=== PATIENT | female | born 1950 | race Caucasian/White ===

== ENCOUNTER 2019-06-03 07:59 | Outpatient (CLI) | payer MEDICARE, OTHER, SELFPAY ==
--- NOTE | 2019-06-03 08:15 | MM_ITS ---
WS: [id number] Unilateral RIGHT diagnostic DIGITAL MAMMOGRAM WITH CAD HISTORY: 6 MO F/U RT ASYMMETRY COMPARISON: 02/10/2019, 01/22/2019, 05/23/2016, 01/12/2015 RIGHT CC, MLO, ML and spot views. Computer aided detection analyzed. Breast composition: There are scattered areas of fibroglandular density. Asymmetry measuring 8 mm per sists along the 10:00 axis of the RIGHT breast at a middle depth. Very similar in appearance to the p rior study. These findings remain stable since 01/12/2015. This distortion is concerning but due to st ability continued follow-up is recommended. RIGHT breast ultrasound, limited. Ultrasound is directed to the upper-outer quadrant of the RIGHT breast. No ultrasound abnormality is identified. There is no shadowing or distortion. MM/[place] [id number] IMPRESSION: BI-RADS: 3-Probably Benign FOLLOW UP: 9 Month Follow-up Recommend diagnostic mammogram follow-up and possible ultrasound in 9 months. T his will be the time for the patient's annual mammogram. Recommend follow-up ma mmogram in January 2020. Diagnostic imaging of the RIGHT breast and possible ul trasound.
== END 2019-06-03 08:00 | disposition home or self-care (01) ==
LOC: RADSHAW 08:04
PROVIDERS: Family Provider Internal Medicine; PCP Internal Medicine; Visit Provider Internal Medicine
DX: N64.89 Other specified disorders of breast (principal)
CPT/HCPCS: 76642; 77065

== ENCOUNTER 2020-03-16 07:44 | Outpatient (CLI) | payer MEDICARE, OTHER, SELFPAY ==
--- NOTE | 2020-03-16 08:14 | MM_ITS ---
WS: [id number] BILATERAL DIGITAL DIAGNOSTIC MAMMOGRAM MAMMOGRAPHY WITH CAD CLINICAL INFORMATION: INCONCLUSIVE MAMMOGRAM/RT ASYMMETRY COMPARISON: 019 prior mammograms dating back to 2014 TECHNIQUE: Bilateral CC, MLO, and ML views. FINDINGS: Scattered fibroglandular densities bilaterally. Stable 8 mm ovoid density upper outer right breast. T his is stable since 2015. A few punctate calcifications. Left breast is unchanged in appearance. Ultr asound right breast is pending. ULTRASOUND BREAST RIGHT TECHNIQUE: Ultrasound right breast focused area of concern. CLINICAL INFORMATION: INCONCLUSIVE MAMMOGRAM/RT ASYMMETRY COMPARISON: None. FINDINGS: Ultrasound right breast at the 9 to 11:00 position. No evidence of pathologic mass or lesion to corre spond to the mammographic findings. Dense underlying parenchymal tissue. No suspicious findings. Dc mmend return to annual screening mammography. MM/[place] [id number] IMPRESSION: BI-RADS: 2-Benign FOLLOW UP: 1 Year Follow-up Recommend return to annual screening mammography.
== END 2020-03-16 07:45 | disposition home or self-care (01) ==
LOC: RADSHAW 07:47
PROVIDERS: Family Provider Internal Medicine; PCP Internal Medicine; Visit Provider Internal Medicine
DX: R92.2 Inconclusive mammogram (principal); N64.89 Other specified disorders of breast
CPT/HCPCS: 76642; 77066

== ENCOUNTER 2021-10-18 08:41 | Outpatient (CLI) | payer MEDICARE, OTHER, SELFPAY ==
--- NOTE | 2021-10-18 08:59 | MR_ITS ---
WS: [id number] INDICATION: RIGHT wrist pain with knot RIGHT wrist. Palpable lump TECHNIQUE: MRI of the RIGHT forearm without and with gadolinium enhancement. Sagittal T1, STIR, coron al T1, coronal T2 fat-sat, axial T1, axial T2 fat sat, and post gadolinium images were obtained with fat saturation technique. Images are somewhat limited due to difficult positioning and location of th e lesion. FINDINGS: Palpable marker visualized overlying the dorsal distal radius just proximal to the radiocar pal joint. Underlying inflammatory changes and edema with fluid extending along the underlying tendon sheath compatible with tenosynovitis with diffuse adenopathy. Palpable marker overlies the extensor pollicis brevis tendon and abductor pollicis longus with diffuse thickening and enhancement. Loss of the normal tendon signal. Findings compatible with diffuse tendinopathy and tenosynovitis with partia l tear. Recommend clinical correlation for injury. Loss of the normal T1 signal involving the extenso r pollicis brevis and abductor pollicis longus. Small amount of edema extends along the extensor retinaculum. Adjacent extensor carpi radialis brevis and extensor carpi radialis longus are normal in appearance. MR/MR forearm RT wo/w con [id number] IMPRESSION: 1. The to the palpable marker there is diffuse irregularity with fluid and isabelle ma involving the extensor pollicis brevis and abductor pollicis longus tendons consistent with tendinopathy and partial tear. Loss of the normal tendon signal . Prominent diffuse surrounding soft tissue thickening. Diffuse enhancement lik jacqueline inflammatory. 2. Small amount of edema along the extensor retinaculum. Extensor carpal radia lis longus and extension carpi radialis brevis are normal in appearance.
[2021-10-18] MEDS: gadobenate dimeglumine 20 mL vial IV (10:45)
== END 2021-10-18 08:42 | disposition home or self-care (01) ==
PROVIDERS: PCP Internal Medicine; Visit Provider Orthopaedic Surgery
DX: M79.89 Other specified soft tissue disorders (principal)
CPT/HCPCS: 73220

== ENCOUNTER → 2022-03-13 07:56 | Outpatient (BNVA) | payer MEDICARE, OTHER, SELFPAY | PROVIDERS: PCP Internal Medicine; Visit Provider Student in an Organized Health Care Education/Training Program | DX: M65.4 Radial styloid tenosynovitis [de Quervain] (principal) | CPT/HCPCS: 99204 ==

== ENCOUNTER 2022-03-16 06:49 | Day surgery (SDC) | payer MEDICARE, OTHER, SELFPAY ==
[2022-03-16] VITALS (15 sets, daily range): BP systolic 141–228; BP diastolic 77–105; PULSE 57–75; RESP 14–18; TEMP 36.1–36.3; O2SAT 94–99
[2022-03-16] MEDS: acetaminophen 1,000 MG/100 ML PIGGYBACK 400 MG IV (07:22)
[2022-03-16] MEDS: ketorolac 30 mg/mL INJ IVP (07:22)
[2022-03-16] MEDS: sodium chloride 0.9% 1,000 ML 30 ML IV (07:22)
[2022-03-16 07:23] LABS: Glucose Point of Care 95 mg/dL (70-110)
--- NOTE | 2022-03-16 07:45 | ANES.PREANE2 ---
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 Operation Date: 03/16/22 08:25 Proposed Procedures p Right wrist first dorsal compartment release 45656,M65.4(Right) - Niles Archuleta, DO Familial anesthetic complications: none Was Beta Beto taken within 24 hours: N/A Was Clonidine taken within 24 hours: N/A Last intake: Intake Last Liquid Date 03/15/22 Last Liquid Time 20:30 Last Solid Date 03/15/22 Last Solid Time 15:30 Social Tobacco (vapes) and No alcohol Exam alert, oriented x 3 and regular rate & rhythm Airway Submandibular: within normal limits Cervical ROM: within normal limits Mallampati: Class II Dentition: full Pulmonary Chronic Obstructive Pulmonary Disease CV/HEM Hypertension Metabolic Diabetes Mellitus and Thyroid Disease Neuropsych Anxiety Anesthetic Plan ASA status: 3 Anesthesia: Choice Medications/Allergies Home Medications Medication Instructions Recorded Confirmed Last Taken Type alprazolam 1 mg tablet 1 mg PO BID 03/13/22 03/15/22 03/16/22 History blood sugar diagnostic (Blood 03/13/22 03/13/22 Unknown History Glucose Test strips) hydrocodone 5 mg-acetaminophen 325 1 tab PO BID PRN Pain 03/13/22 03/15/22 03/16/22 History mg tablet levothyroxine 88 mcg tablet 88 mcg PO DAILY 03/13/22 03/15/22 03/15/22 History (Levoxyl) lisinopril 40 mg tablet 40 mg PO DAILY 03/13/22 03/15/22 03/15/22 History metformin 500 mg tablet 500 mg PO BID 03/13/22 03/15/22 03/15/22 History Allergies Allergy/AdvReac Type Severity Reaction Status Date / Time No Known Allergies Allergy Verified 03/13/22 08:18 Current Medications Generic Name Dose Route Start Last Admin Trade Name Freq PRN Reason Stop Dose Admin Sodium Chloride 1,000 mls @ 30 mls/hr 03/16/22 07:00 03/16/22 07:22 Sodium Chloride 0.9% IV 03/17/22 06:59 30 mls/hr .Q24H JUVENTINO Administration Data Anesthesia Cardiac Studies: No Data to Display
[2022-03-16] MEDS: ceFAZolin 2,000 MG in sodium chloride 0.9% (plus) 50 ML 100 MG IV (08:38)
--- NOTE | 2022-03-16 08:48 | W.PM.OPSUD ---
Surgery/Procedure H&P Update DATE OF PROCEDURE: March 16, 2022 DATE H&P PERFORMED: 03/13/22 CHANGES TO PREVIOUS DOCUMENTATION: None PREOP DIAGNOSIS: Right wrist de Quervain's disease PRIMARY INDICATION FOR PROCEDURE: Right wrist de Quervain's disease PLANNED PROCEDURE: Operation Date: 03/16/22 08:25 Proposed Procedures p Right wrist first dorsal compartment release [id number],M65.4(Right) - Niles Shannon DO
[2022-03-16] MEDS: lidocaine 1% INJ 20 mL INJECTION (09:05)
[2022-03-16] MEDS: metoprolol tartrate 1 mg/1 mL SDV 5 mL 5 MG IVP (10:00)
--- NOTE | 2022-03-16 11:01 | P.OP_ITS ---
Operative Report Date of procedure: March 16, 2022 Pre-op diagnosis: Preop Diagnosis Right wrist de Quervain's disease Post-op diagnosis: Same Procedure done: Right wrist de Quervain's release (right wrist first dorsal compartment release) Surgeon: Niles Shannon DO Estimated blood loss: 4 mL 21 minutes IV fluids: See anesthesia record Complications: None Findings: See operative report narrative Condition: stable Disposition: same day Brief History: Patient seen and been worked up in the outpatient setting. She had been worked up by an additional physician and to see myself as a second opinion. She is failed conservative treatment exhaustively is over the past year she is underwent injection with minimal relief she has been braced as well as underwent casting. This point time she is failed conservative treatment we talked about her treatment options as far as continuing conservative or surgical intervention. This point time through shared decision-making she is agreeable to proceed with surgical intervention of right wrist de Quervain's release (she understands risk benefits complication alternatives to surgical treatment options. Understanding wrist she agrees to proceed with surgical intervention. All questions answered. Consent was obtained in the office. Procedure: Patient was seen evaluate in the preoperative holding area. Consent was reviewed and signed with patient. The correct extremity was marked. Seen evaluate Anesthesia Department was cleared for surgery taken back to the operative suite. She is placed onto the OR table. All bony prominences well- padded patient was properly secured to the bed. Armboard was placed for the right upper extremity. She had a nonsterile tourniquet applied to the right upper arm. Patient subsequently underwent anesthesia per the anesthesia department. Right upper extremity was then prepped and draped in therapeutic fashion. Final timeout performed. She received appropriate preoperative antibiotics. Esmarch tourniquet was used exsanguinate the right upper extremity and t ourniquet was insufflated to 250 mmHg. A standard longitudinal incision was made centered over the right wrist first dorsal compartment. Sharp scalpel incision was made through skin. I then switched to dissection scissors and spread longitudinally. The superficial radial nerve branch was identified and protected throughout the case. I then spread the subcutaneous tissue directly over to the second first dorsal compartment fascia. This point time I switched to deep scalpel and made an incision over the first dorsal compartment longitudinally. I then switched to dissection scissors and a turned my attention proximally. I bluntly spread on top of the first dorsal compartment and then care under loupe magnification and protection and visualization completely released the first dorsal compartment proximally. Next I switched my Kasdan retractors distally and under direct visualization with loupe magnification I incised the first dorsal compartment distally to its distalmost extent. This had free mobilization of the tendons. I then identified all the slips of the tendon. There is mild irritation but no significant tearing was noted. Next IN identified the EPB tendon which was entrapped within its own soft sheath. The soft sheath was then released to its entirety with dissection scissors. The first dorsal compartment tendons were once again thoroughly inspected no masses were noted no significant tearing of the tendons was noted. There was some tenosynovitis around the tendons which some of the excessive synovitis was then excised around the tendons. The wound bed was then thoroughly irrigated. The tendons were confirmed to be free as I move the wrist as well as thumb through range of motion of the tendons glided free. This point time tourniquet was deflated. Hemostasis satisfactory with bipolar electrocautery. Wound bed once again thoroughly irrigated. Incision was then closed with 3-0 Vicryl and a running horizontal mattress nylon stitch. Incision covered with Xeroform 4 x 4's ABD soft roll and an Jaime wrap. She was awakened from anesthesia and taken to PACU in stable condition. Patient tolerated procedure without complications. Disposition: Patient taken to PACU in stable condition tolerated procedure without complications. She will receive appropriate discharge instructions as well as pain medication postoperatively. Follow-up with me in the office in 2 weeks. Patient understands agrees with current plan. All questions answered.
--- NOTE | 2022-03-16 11:01 | P.OP_ITS ---
Brief Operative Note Date of procedure: 03/20/22 Pre-op diagnosis: Right de Quervain's disease Post-op diagnosis: same Procedure Done: Right de Quervain's release (release first dorsal compartment right wrist) Surgeon: Niles Shannon Estimated blood loss (mL): 4 Complications: None Post-op Plan: Patient taken to PACU in stable condition recovering well. Patient will receive appropriate discharge instructions as well as pain medication postoperatively. She will follow-up with me in the office in 2 weeks. Patient understands agrees with current plan. All questions answered. Condition: stable Disposition: same day Coding Level of Care Code Acute Research Agricultural Engineer for Josseline Machado
--- NOTE | 2022-03-16 11:01 | PM.PACU ---
PACU note Narrative: Patient taken to PACU in stable condition. Patient pain well controlled and tolerated procedure. Dressings on in place clean dry and intact. Patient is able to wiggle fingers as well as extend thumb. Patient does have some decreased sensation to the thumb secondary to local anesthesia. Fingertips warm well-perfused brisk capillary refill less than 2 seconds. Exam: awake Disposition: discharged
--- NOTE | 2022-03-16 15:42 | ANE.PACU2 ---
Inpatient post-anesthesia follow up: Airway intact: Yes Vital signs: Temperature 97.2 F Pulse Rate 58 Respiratory Rate 18 Blood Pressure 169/88 Pulse Oximetry 97 Oxygen Delivery Me thod Room Air Oxygen Flow Rate Fraction of Inspir ed Oxygen Hydration adequate: Yes Nausea and vomiting: No Pain level: 2 Mental status: Baseline
== END 2022-03-16 11:02 | disposition home or self-care (01) ==
PROVIDERS: PCP Internal Medicine; Visit Provider Student in an Organized Health Care Education/Training Program
PROC: (CPT 25000; principal; 2022-03-16 08:15)
DX: M65.4 Radial styloid tenosynovitis [de Quervain] (principal); F17.290 Nicotine dependence, other tobacco product, uncomplicated; E11.9 Type 2 diabetes mellitus without complications; Z79.84 Long term (current) use of oral hypoglycemic drugs; J44.9 Chronic obstructive pulmonary disease, unspecified; I10 Essential (primary) hypertension; F41.9 Anxiety disorder, unspecified
CPT/HCPCS: 25000; 36416; 82962; J0131; J0690; J1885; J2704; J3010; J3490; J7030

== ENCOUNTER → 2022-03-28 15:25 | Outpatient (BNVA) | payer MEDICARE, OTHER, SELFPAY | PROVIDERS: PCP Internal Medicine; Visit Provider Student in an Organized Health Care Education/Training Program | DX: M65.4 Radial styloid tenosynovitis [de Quervain] (principal) | CPT/HCPCS: 99024 ==

== ENCOUNTER → 2023-01-01 14:29 | Outpatient (BNVA) | payer MEDICARE, OTHER, SELFPAY | PROVIDERS: PCP Internal Medicine; Referring Provider Nurse Practitioner; Visit Provider Student in an Organized Health Care Education/Training Program | DX: S92.352A Displaced fracture of fifth metatarsal bone, left foot, initial encounter for closed fracture; W19.XXXA Unspecified fall, initial encounter | CPT/HCPCS: 73630; 99213 ==

== ENCOUNTER → 2023-01-29 14:20 | Outpatient (BNVA) | payer MEDICARE, OTHER, SELFPAY | PROVIDERS: PCP Internal Medicine; Visit Provider Physician Assistant | DX: S92.352A Displaced fracture of fifth metatarsal bone, left foot, initial encounter for closed fracture; W19.XXXA Unspecified fall, initial encounter | CPT/HCPCS: 73630; 99213 ==

== ENCOUNTER → 2023-02-12 14:05 | Outpatient (BNVA) | payer MEDICARE, OTHER, SELFPAY | PROVIDERS: PCP Internal Medicine; Visit Provider Physician Assistant | DX: S92.352A Displaced fracture of fifth metatarsal bone, left foot, initial encounter for closed fracture; W19.XXXA Unspecified fall, initial encounter | CPT/HCPCS: 73630; 99213 ==

== ENCOUNTER → 2023-03-12 15:17 | Outpatient (BNVA) | payer MEDICARE, OTHER, SELFPAY | PROVIDERS: PCP Internal Medicine; Visit Provider Physician Assistant | DX: S92.352A Displaced fracture of fifth metatarsal bone, left foot, initial encounter for closed fracture; W19.XXXA Unspecified fall, initial encounter | CPT/HCPCS: 73620; 99213 ==

== ENCOUNTER 2024-11-11 14:25 | Outpatient (CLI) | payer MEDICARE, OTHER, SELFPAY ==
--- NOTE | 2024-11-11 14:32 | XR_ITS ---
WS: [id number] DEXA (DUAL ENERGY X-RAY ABSORPTIOMETRY) Bone mineral density was performed using a [employer] machine. HISTORY: OSTEOPOROSIS SCREENING COMPARISON: None available. Lumbar spine BMD (L1-L4): 1.373 g/cm2 T score: 1.6 Z score: 3.3 Total hip BMD: Left: 0.922 g/cm2. T score: -0.7 Z score: 1.1 Right: 0.920 g/cm2. T score: -0.7 Z score: 1.0 10 year probability of a major osteoporotic fracture is 23.8%. XR/XR DEXA axial skeleton* [id number] IMPRESSION: NORMAL BONE MINERAL DENSITY based upon the WHO classification for females.
== END 2024-11-11 14:26 | disposition home or self-care (01) ==
LOC: RAD 14:29
PROVIDERS: PCP Internal Medicine; Visit Provider Family Medicine
DX: M81.0 Age-related osteoporosis without current pathological fracture (principal)
CPT/HCPCS: 77080

== ENCOUNTER 2025-02-24 08:11 | Outpatient (CLI) | payer MEDICARE, OTHER, SELFPAY ==
--- NOTE | 2025-02-24 08:21 | MM_ITS ---
WS: [id number] BILATERAL SCREENING DIGITAL TOMOSYNTHESIS MAMMOGRAM WITH CAD HISTORY: SCREENING COMPARISON: 03/16/2020, 06/03/2019, 05/23/2016 Bilateral CC and MLO views with tomosynthesis and synthetic mammography submitted. Computer aided detection analyzed. Breast composition: The breasts are heterogeneously dense, which may obscure small masses. Increasing distortion upper outer quadrant LEFT breast at a middle depth. This is the site of a prior biopsy. As compared to 2001 exam the distortion has progressed. There are a few calcifications also at the site of distortion. RIGHT breast is stable. MM/MM scr BI tomosynthesis [id number] IMPRESSION: BI-RADS: 0 - Incomplete: Need additional imaging evaluation FOLLOW UP: Need Additional Imaging LEFT breast: Spot compression views (CC and MLO). True ML. Ultrasound to follow if abnormality persists.
== END 2025-02-24 08:12 | disposition home or self-care (01) ==
LOC: RAD 08:16
PROVIDERS: PCP Family Medicine; Visit Provider Family Medicine
DX: Z12.31 Encounter for screening mammogram for malignant neoplasm of breast (principal); R92.333 Mammographic heterogeneous density, bilateral breasts; R92.1 Mammographic calcification found on diagnostic imaging of breast; N63.21 Unspecified lump in the left breast, upper outer quadrant
CPT/HCPCS: 77063; 77067

== ENCOUNTER 2025-03-15 08:49 | Outpatient (CLI) | payer MEDICARE, OTHER, SELFPAY ==
--- NOTE | 2025-03-15 08:52 | MM_ITS ---
WS: [id number] ADDITIONAL VIEWS LEFT MAMMOGRAM WITH DIGITAL BREAST TOMOSYNTHESIS. LEFT breast ultrasound, limited. HISTORY: INCONCLUSIVE MAMMOGRAM COMPARISON: 02/24/2025, 03/16/2020, 01/22/2019 Spot compression views LEFT breast in CC, MLO projections and true ML submitted with digital breast tomosynthesis and SM. Breast composition: The breasts are heterogeneously dense, which may obscure small masses. Asymmetry and architectural distortion persists. There is no identifiable mass. There are a few small calcifications which appear dystrophic and less clustered with additional imaging. The density and asymmetry appear slightly progressed as compared to prior older exams. Ultrasound to follow. There is no measurable mass by mammography. LEFT breast ultrasound, limited. No mass or significant shadowing identified in the upper outer quadrant of the LEFT breast at the site of distortion seen by mammography. No skin thickening. MM/MM diag LT tomosynthesis [id number] IMPRESSION: BI-RADS: 2 - Benign FOLLOW UP: 1 Year Follow-up No persistent abnormality seen on mammography or ultrasound in the upper outer quadrant. Return to annual screening mammography.
== END 2025-03-15 08:50 | disposition home or self-care (01) ==
LOC: RAD 08:49
PROVIDERS: PCP Family Medicine; Visit Provider Family Medicine
DX: R92.2 Inconclusive mammogram (principal); N64.89 Other specified disorders of breast; R92.333 Mammographic heterogeneous density, bilateral breasts; R92.1 Mammographic calcification found on diagnostic imaging of breast
CPT/HCPCS: 76642; 77061; 77063